=== PATIENT | female | born 2000 | race Hispanic/Latino ===

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

== ENCOUNTER 2022-02-20 15:15 | Emergency (ER) | payer MEDICAID ==
[~2022-02-20] VITALS: Ht 160 cm; Wt 104.3 kg
[2022-02-20 15:54] LABS: APPEARANCE,URINE Cloudy (CLEAR); BILIRUBIN,URINE Negative (NEGATIVE); COLOR,URINE Yellow (YELLOW); GLUCOSE, URINE (UA) Negative (NEGATIVE); KETONES,URINE Negative (NEGATIVE); LEUKOCYTE ESTERASE ,URINE Moderate (NEGATIVE); NITRATE,URINE Negative (NEGATIVE); OCCULT BLOOD,URINE Negative (NEGATIVE); PH,URINE 6.5 (5.0-8.0); PROTEIN,URINE Negative (NEGATIVE)
[2022-02-20] MEDS ORDERED: ACETAMINOPHEN 500 MG TABLET PO ONE (16:00)
[2022-02-20] MEDS ORDERED: CEPHALEXIN 500 MG CAPSULE PO ONE (16:00)
[2022-02-20 16:02] LABS: BACTERIA,URINE Few /HPF (None Seen); RBC,URINE 0-1 /HPF (0-1); SQUAMOUS EPITHELIAL CELL,UR Moderate /HPF (0-2)
[2022-02-20 16:03] LABS: MUCUS,URINE Few LPF (None Seen)
[2022-02-20 16:03] LABS: BASOPHILS % (AUTO) 0.4 % (0.0-5.0); EOSINOPHILS % (AUTO) 0.5 % (0.0-8.0); HEMATOCRIT 32.9 % (36-48); LYMPHOCYTES % (AUTO) 24.7 % (21.0-51.0); MEAN CORPUSCULAR HEMOGLOBIN 19.7 pg (27.0-33.0); MEAN CORPUSCULAR HGB CONC 29.8 g/dL (32.0-36.0); MEAN CORPUSCULAR VOLUME 66.2 fL (80-100); NEUTROPHILS % (AUTO) 64.9 % (40.0-77.0); PLATELET COUNT (AUTO) 97 K/uL (130-400); RED BLOOD CELL COUNT(AUTO) 4.97 MIL/uL (4.00-5.50); RED CELL DISTRIBUTION WIDTH 19.7 % (11.0-15.5); WHITE BLOOD COUNT (AUTO) 7.7 K/uL (4.8-10.8)
[2022-02-20 16:16] LABS: CREATININE 0.5 mg/dL (0.5-1.5); POTASSIUM 3.7 mmol/L (3.5-5.1)
[2022-02-20 16:43] LABS: ALBUMIN 3.2 g/dL (3.5-5.0); BILIRUBIN,TOTAL 0.2 mg/dL (0.2-1.0); TOTAL PROTEIN, SERUM 7.3 g/dL (6.0-8.3)
[2022-02-20] MEDS ORDERED: CEPH500B PO (17:04)
[2022-02-20] MEDS ORDERED: PNV1TABL17 PO (17:04)
[2022-02-20 17:05] VITALS: BP 117/74
== END 2022-02-20 17:11 | disposition home or self-care (01) ==
LOC: EDH 15:15
DX: O23.40 Unspecified infection of urinary tract in pregnancy, unspecified trimester (principal); N39.0 Urinary tract infection, site not specified; Z3A.00 Weeks of gestation of pregnancy not specified
CPT/HCPCS: 36415; 80053; 81001; 84702; 85025; 87088

== ENCOUNTER 2022-04-17 23:12 | Emergency (ER) | payer MEDICAID ==
[~2022-04-17] VITALS: Ht 160 cm; Wt 101.6 kg
[~2022-04-17 23:12] MED LIST: CEPH500B PO; PNV1TABL17 PO
[2022-04-17] MEDS ORDERED: PROMETHAZINE HCL 25 MG/ML 1ML AMPULE IM ONE (23:30)
[2022-04-17] MEDS ORDERED: LACTATED RINGERS 1000ML 1,000 ML IV ONE (23:30)
[2022-04-17 23:59] LABS: APPEARANCE,URINE CLEAR (CLEAR); BILIRUBIN,URINE NEGATIVE (NEGATIVE); COLOR,URINE YELLOW (YELLOW); GLUCOSE, URINE (UA) NEGATIVE (NEGATIVE); KETONES,URINE 5 mg/dL (NEGATIVE); LEUKOCYTE ESTERASE ,URINE TRACE (NEGATIVE); NITRATE,URINE NEGATIVE (NEGATIVE); OCCULT BLOOD,URINE NEGATIVE (NEGATIVE); PROTEIN,URINE NEGATIVE (NEGATIVE); UROBILINOGEN,URINE 0.2 mg/dL (0.2-1.0)
[2022-04-18 00:16] LABS: BACTERIA,URINE Few /HPF (None Seen); CALCIUM OXALATE CRYSTALS,UR Moderate /LPF (None Seen); RBC,URINE None Seen /HPF (0-1); SQUAMOUS EPITHELIAL CELL,UR Moderate /HPF (0-2)
[2022-04-18 00:30] LABS: BASOPHILS % (AUTO) 0.4 % (0.0-5.0); EOSINOPHILS % (AUTO) 0.4 % (0.0-8.0); HEMATOCRIT 35.8 % (36-48); MEAN CORPUSCULAR HEMOGLOBIN 23.3 pg (27.0-33.0); MEAN CORPUSCULAR HGB CONC 31.8 g/dL (32.0-36.0); MEAN CORPUSCULAR VOLUME 73.1 fL (80-100); MONOCYTES % (AUTO) 8.6 % (3.0-13.0); NEUTROPHILS % (AUTO) 69.3 % (40.0-77.0); PLATELET COUNT (AUTO) 85 K/uL (130-400); RED CELL DISTRIBUTION WIDTH 24.2 % (11.0-15.5); WHITE BLOOD COUNT (AUTO) 7.8 K/uL (4.8-10.8)
[2022-04-18 00:34] LABS: CREATININE 0.7 mg/dL (0.5-1.5); POTASSIUM 3.3 mmol/L (3.5-5.1)
[2022-04-18 00:40] LABS: ALBUMIN 3.3 g/dL (3.5-5.0); TOTAL PROTEIN, SERUM 7.7 g/dL (6.0-8.3)
[2022-04-18] MEDS ORDERED: PHEN12S PR (01:22)
[2022-04-18] MEDS ORDERED: LOPE2CAP PO (01:22)
[2022-04-18 01:26] VITALS: BP 112/54
[2022-04-18] MEDS ORDERED: POTASSIUM CHLORIDE 10% ELIXIR 20 MEQ/15 ML UDCUP PO ONE (01:30)
== END 2022-04-18 01:41 | disposition home or self-care (01) ==
LOC: EDH 23:12
DX: O26.892 Other specified pregnancy related conditions, second trimester (principal); K52.9 Noninfective gastroenteritis and colitis, unspecified; Z20.822 Contact with and (suspected) exposure to COVID-19; Z3A.14 14 weeks gestation of pregnancy
CPT/HCPCS: 99284; 96360; 76801; 87635; 96361; 80053; 83690; 85025; 81001; 36415; 96372; C9803; J7120; J2550

== ENCOUNTER 2022-06-25 20:26 | Observation (INO) | payer MEDICAID ==
[~2022-06-25] VITALS: Ht 160 cm; Wt 102.5 kg
[~2022-06-25 20:26] MED LIST changes: +LOPE2CAP PO; +PHEN12S PR
[2022-06-25 20:29] VITALS: BP 115/51
[2022-06-25 21:07] LABS: APPEARANCE,URINE CLOUDY (CLEAR); BILIRUBIN,URINE NEGATIVE (NEGATIVE); COLOR,URINE YELLOW (YELLOW); GLUCOSE, URINE (UA) NEGATIVE (NEGATIVE); KETONES,URINE 5 mg/dL (NEGATIVE); LEUKOCYTE ESTERASE ,URINE 500 Leu/uL (NEGATIVE); NITRATE,URINE NEGATIVE (NEGATIVE); PROTEIN,URINE 30 mg/dL (NEGATIVE)
[2022-06-25 21:15] LABS: AMPHET/METH SCREEN,URINE NEGATIVE (NEGATIVE); BARBITURATE SCREEN, URINE NEGATIVE (NEGATIVE); BENZODIAZEPINES SCREEN,URINE NEGATIVE (NEGATIVE); CANNABINOID SCREEN,URINE NEGATIVE (NEGATIVE); COCAINE SCREEN,URINE NEGATIVE (NEGATIVE); PHENCYCLIDINE SCREEN,URINE NEGATIVE (NEGATIVE)
[2022-06-25 21:29] LABS: BACTERIA,URINE FEW /HPF (None Seen); CALCIUM OXALATE CRYSTALS,UR FEW /LPF (None Seen); MUCUS,URINE FEW LPF (None Seen); OTHER CASTS, URINE 6 /LPF (None Seen); SQUAMOUS EPITHELIAL CELL,UR MANY /HPF (0-2); YEAST,URINE BUDDING RARE /HPF (None Seen)
[2022-06-25 21:33] LABS: WBC,URINE >100 /HPF (0-1)
[2022-06-25] MEDS ORDERED: CEFTRIAXONE 1G VIAL IM ONE (22:30)
[2022-06-25] MEDS ORDERED: LIDOCAINE HCL-MPF 1% 2ML VIAL IM SCH (22:30)
== END 2022-06-25 23:45 | disposition home or self-care (01) ==
LOC: EDH 20:26 → LDH 20:41
PROVIDERS: ADMIT Obstetrics & Gynecology; ATTEND Obstetrics & Gynecology
DX: O26.852 Spotting complicating pregnancy, second trimester (principal); Z3A.23 23 weeks gestation of pregnancy
CPT/HCPCS: 96372 ×2; 80305; 87088; 81001; G0378 ×3; G0379; J0696; J3490

== ENCOUNTER 2022-07-11 05:37 | Emergency (ER) | payer MEDICAID ==
[2022-07-11 05:45] VITALS: BP 126/83
[2022-07-12] MEDS ORDERED: ACET-2079 PO (01:12)
[2022-07-12] MEDS ORDERED: CIPR7.5D OT (01:12)
[2022-07-12] MEDS ORDERED: CEPH500B PO (01:12)
== END 2022-07-11 08:15 | disposition left against medical advice (07) ==
LOC: EDH 05:37
DX: H92.02 Otalgia, left ear (principal); Z53.21 Procedure and treatment not carried out due to patient leaving prior to being seen by health care provider

== ENCOUNTER 2022-07-12 00:04 | Emergency (ER) | payer MEDICAID ==
[~2022-07-12] VITALS: Ht 160 cm; Wt 103.9 kg
[2022-07-12] MEDS ORDERED: CEPH500B PO (01:12)
[2022-07-12] MEDS ORDERED: CIPR7.5D OT (01:12)
[2022-07-12] MEDS ORDERED: ACET-2079 PO (01:12)
[2022-07-12] MEDS ORDERED: CIPROFLOXACIN HCL 0.2%/HYDROCORT 1% 10 ML OTIC SUSP OTIC SCH (01:30)
[2022-07-12] MEDS ORDERED: HYDROCODONE/ACETAMINOPHEN 10/325 MG TAB PO ONE (01:30)
[2022-07-12] MEDS ORDERED: CEPHALEXIN 500 MG CAPSULE PO ONE (01:30)
[2022-07-12 01:38] VITALS: BP 121/68
== END 2022-07-12 01:47 | disposition home or self-care (01) ==
LOC: EDH 00:04
DX: O99.891 Other specified diseases and conditions complicating pregnancy (principal); H66.93 Otitis media, unspecified, bilateral; Z3A.26 26 weeks gestation of pregnancy

== ENCOUNTER 2022-09-16 23:43 | Emergency (ER) | payer MEDICAID ==
[~2022-09-16] VITALS: Ht 160 cm; Wt 108.4 kg
[~2022-09-16 23:43] MED LIST changes: +ACET-2079 PO; +CIPR7.5D OT
[2022-09-17 01:45] VITALS: BP 121/68
== END 2022-09-17 01:48 | disposition home or self-care (01) ==
LOC: EDH 23:43
DX: O98.513 Other viral diseases complicating pregnancy, third trimester (principal); U07.1 COVID-19; J06.9 Acute upper respiratory infection, unspecified; Z3A.36 36 weeks gestation of pregnancy; Z79.899 Other long term (current) drug therapy
CPT/HCPCS: 99283; 87635; 87880; 87804 ×2; C9803

== ENCOUNTER 2022-09-27 20:31 | Observation (INO) | payer MEDICAID ==
[~2022-09-27] VITALS: Ht 160 cm; Wt 108.0 kg
[2022-09-27 21:20] LABS: APPEARANCE,URINE TURBID (CLEAR); BILIRUBIN,URINE NEGATIVE (NEGATIVE); COLOR,URINE YELLOW (YELLOW); GLUCOSE, URINE (UA) NEGATIVE (NEGATIVE); KETONES,URINE NEGATIVE (NEGATIVE); LEUKOCYTE ESTERASE ,URINE 500 Leu/uL (NEGATIVE); NITRATE,URINE NEGATIVE (NEGATIVE); OCCULT BLOOD,URINE NEGATIVE (NEGATIVE); PH,URINE 6.5 (5.0-8.0); PROTEIN,URINE 20 mg/dL (NEGATIVE); UROBILINOGEN,URINE 0.2 mg/dL (0.2-1.0)
[2022-09-27 21:24] LABS: BACTERIA,URINE RARE /HPF (None Seen); MUCUS,URINE RARE LPF (None Seen); SQUAMOUS EPITHELIAL CELL,UR MOD /HPF (0-2); WBC,URINE 51-100 /HPF (0-1); YEAST,URINE BUDDING MOD /HPF (None Seen)
[2022-09-27 22:06] VITALS: BP 115/68
[2022-09-27] MEDS ORDERED: LACTATED RINGERS 1000ML IV PRN (22:30)
[2022-09-27] MEDS ORDERED: CEFTRIAXONE 1G VIAL IVP ONE (23:00)
== END 2022-09-27 23:59 | disposition home or self-care (01) ==
LOC: EDH 20:31 → LDH 20:32
PROVIDERS: ADMIT Obstetrics & Gynecology; ATTEND Obstetrics & Gynecology
DX: O98.513 Other viral diseases complicating pregnancy, third trimester (principal); U07.1 COVID-19; O62.9 Abnormality of forces of labor, unspecified; O99.891 Other specified diseases and conditions complicating pregnancy; M54.50 Low back pain, unspecified; O99.513 Diseases of the respiratory system complicating pregnancy, third trimester; R06.02 Shortness of breath; O26.893 Other specified pregnancy related conditions, third trimester; R05.9 Cough, unspecified; Z3A.37 37 weeks gestation of pregnancy; Z79.899 Other long term (current) drug therapy
CPT/HCPCS: 96374; 96361; 59025; 87088; 87804 ×2; 81001; 87635; 76819; G0378 ×3; G0379; J0696; 96360

== ENCOUNTER 2022-11-08 23:45 | Emergency (ER) | payer MEDICAID ==
[~2022-11-08] VITALS: Ht 157.5 cm; Wt 102.1 kg
[2022-11-09] MEDS ORDERED: MORPHINE 2 MG SYG IVP ONE (00:30)
[2022-11-09] MEDS ORDERED: ONDANSETRON 4MG INJ IVP ONE (00:30)
[2022-11-09] MEDS ORDERED: LACTATED RINGERS 1000ML 1,000 ML IV ONE (00:30)
[2022-11-09 00:38] LABS: BASOPHILS % (AUTO) 0.4 % (0.0-5.0); EOSINOPHILS % (AUTO) 1.2 % (0.0-8.0); HEMATOCRIT 38.3 % (36-48); MEAN CORPUSCULAR HEMOGLOBIN 26.6 pg (27.0-33.0); MEAN CORPUSCULAR HGB CONC 32.4 g/dL (32.0-36.0); MONOCYTES % (AUTO) 8.2 % (3.0-13.0); NEUTROPHILS % (AUTO) 74.7 % (40.0-77.0); PLATELET COUNT (AUTO) 171 K/uL (130-400); RED BLOOD CELL COUNT(AUTO) 4.67 MIL/uL (4.00-5.50); RED CELL DISTRIBUTION WIDTH 13.7 % (11.0-15.5); WHITE BLOOD COUNT (AUTO) 10.8 K/uL (4.8-10.8)
[2022-11-09 00:39] LABS: APPEARANCE,URINE CLEAR (CLEAR); BILIRUBIN,URINE NEGATIVE (NEGATIVE); COLOR,URINE LIGHT-YELLOW (YELLOW); GLUCOSE, URINE (UA) NEGATIVE (NEGATIVE); KETONES,URINE NEGATIVE (NEGATIVE); LEUKOCYTE ESTERASE ,URINE 500 Leu/uL (NEGATIVE); NITRATE,URINE NEGATIVE (NEGATIVE); OCCULT BLOOD,URINE SMALL (NEGATIVE); PROTEIN,URINE NEGATIVE (NEGATIVE); UROBILINOGEN,URINE 0.2 mg/dL (0.2-1.0)
[2022-11-09 00:41] LABS: BACTERIA,URINE RARE /HPF (None Seen); MUCUS,URINE RARE LPF (None Seen); SQUAMOUS EPITHELIAL CELL,UR RARE /HPF (0-2); WBC,URINE 26-50 /HPF (0-1)
[2022-11-09 00:46] LABS: CREATININE 0.7 mg/dL (0.5-1.5); POTASSIUM 3.4 mmol/L (3.5-5.1)
[2022-11-09 00:51] LABS: ALBUMIN 3.4 g/dL (3.5-5.0); TOTAL PROTEIN, SERUM 7.7 g/dL (6.0-8.3)
[2022-11-09] MEDS ORDERED: CEFU500T67 PO (01:22)
[2022-11-09] MEDS ORDERED: IBUP-1493 PO (01:22)
[2022-11-09] MEDS ORDERED: ONDA-104 PO (01:22)
[2022-11-09] MEDS ORDERED: CEFTRIAXONE 1G VIAL IVP ONE (01:30)
[2022-11-09 01:33] VITALS: BP 130/88
== END 2022-11-09 01:49 | disposition home or self-care (01) ==
LOC: EDH 23:45
DX: N39.0 Urinary tract infection, site not specified (principal); K80.20 Calculus of gallbladder without cholecystitis without obstruction; Z79.899 Other long term (current) drug therapy
CPT/HCPCS: 99285; 82150; 80053; 83690; 85025; 87088; 81001; 36415; 96374; 76705; 96375; 96361; J7120; J0696; J2405